=== PATIENT | female | born 1970 | race Caucasian/White ===

== ENCOUNTER → 2016-07-01 | Outpatient (CLI) | payer OTHER ==
--- NOTE | 2016-07-01 16:48 | RADRPT ---
EXAM DATE/TIME: 07/01/2016 13:12 [place] COMPARISON: No previous studies available for comparison. INDICATIONS : Pain. Numbness and tingling in both hands, headaches, dizziness and nausea. MEDICAL HISTORY : None. SURGICAL HISTORY : Tonsillectomy. ENCOUNTER: Initial ACUITY: 1 week PAIN SCORE: 6/10 LOCATION: Neck. TECHNIQUE: Multiplanar, multisequence MRI examination of the cervical spine was performed. FINDINGS: VERTEBRAE: Normal vertebral body height. Bone marrow signal is within normal limits. ALIGNMENT: No evidence of subluxation. CORD: Normal configuration and signal. There is a mildly prominent central canal focally at the C6-C7 level . POST FOSSA: The cerebellar tonsils are normal in position. The craniocervical junction and C1-C2 level demonstrate no abnormality. C2-C3: No disc herniation, canal stenosis, or neural foraminal stenosis. C3-C4: No disc herniation, canal stenosis, or neural foraminal stenosis. C4-C5: No disc herniation, canal stenosis, or neural foraminal stenosis. C5-C6: No disc herniation, canal stenosis, or neural foraminal stenosis. C6-C7: No disc herniation, canal stenosis, or neural foraminal stenosis. C7-T1: No disc herniation, canal stenosis, or neural foraminal stenosis. There is a 7 mm T2 hyperintense nodule in the left thyroid gland. CONCLUSION: 1. No abnormality is identified to explain the clinical symptoms. No significant disc herniation, can al stenosis, or neural foraminal narrowing is identified. 2. There is a 7 mm left thyroid nodule identified. Edgardo Jaffe MD on July 01, 2016 at 16:33 Board Certified Radiologist. This report was verified electronically.
== END ==
LOC: HRAD 12:43
PROVIDERS: ATTEND Orthopaedic Surgery Orthopaedic Surgery of the Spine
DX: M50.20 Other cervical disc displacement, unspecified cervical region (principal)
CPT/HCPCS: 72141